=== PATIENT | male | born 1955 | race Caucasian/White ===

== ENCOUNTER 2017-08-23 13:50 | Emergency (ER) | payer OTHER ==
--- NOTE | 2017-08-23 14:00 | UC ---
Skin Complaint HPI - HPI Summary HPI Summary: 62 y/o male presents to the urgent care c/o a tick in his left thigh he noticed about 1 hr ago. Tick still on his leg. He was painting his deck this morning. He also had a tick bite about a week ago. He went to see his PCP and he Rx 2 tabs of Doxycycline PO. He is concerned about Lyme disease. However he has not developed any bull's eye rash, or fever, or joint pain, or PRINGLE in the past week. Pt denies SOB, chest pain, abdominal pain. N/V/D. - History of Current Complaint Time Seen by Provider: 08/23/17 13:59 Stated Complaint: TICK BITE Hx Obtained From: Patient Onset/Duration: Sudden Onset, Lasting Hours - 1hr Skin Exposure Onset/Duration: Hours Ago - 1hrs ago Onset Severity: Mild Current Severity: Mild Pain Intensity: 1 Pain Scale Used: 0-10 Numeric Location: Discrete - left thigh Character: Redness Aggravating Factor(s): Touch Alleviating Factor(s): Nothing Associated Signs & Symptoms: Positive: Rash Related History: Possible Reaction to: Insect - Allergy/Home Medications Allergies/Adverse Reactions: Allergies Allergy/AdvReac Type Severity Reaction Status Date / Time No Known Allergies Allergy Verified 08/23/17 14:01 Home Medications: Home Medications Hydrocortisone 2.5% CREAM(NF) 1 applic NH DAILY PRN 08/23/17 [History Confirmed 08/23/17] Review of Systems Constitutional: Negative Skin: Rash - left thich w/ alive tick and sorrounding redness Eyes: Negative ENT: Negative Respiratory: Negative Cardiovascular: Negative Gastrointestinal: Negative Genitourinary: Negative Motor: Negative Neurovascular: Negative Musculoskeletal: Negative Neurological: Negative Psychological: Negative Is Patient Immunocompromised?: No All Other Systems Reviewed And Are Negative: Yes PMH/Surg Hx/FS Hx/Imm Hx Previously Healthy: Yes Cardiovascular History: Hypertension - Surgical History Surgical History: None - Family History Known Family History: Positive: None - Pt denies PMHX - Social History Occupation: Employed Full-time Lives: With Family Physical Exam - Summary Physical Exam Summary: Vital Signs Reviewed: Yes General: well developed, well nourished male sitting in the examining table w/o any apparent distress. Eyes: Positive: Conjunctiva Clear - PERRLA, EOMI ENT: Positive: Normal ENT inspection, Hearing grossly normal, Pharynx normal, TMs normal Neck: Positive: Supple, Nontender, No Lymphadenopathy Respiratory: Positive: Chest nontender, Lungs clear, Normal breath sounds Cardiovascular: Positive: RRR, No Murmur, Pulses Normal Abdomen Description: Positive: Nontender, No Organomegaly, Soft. Negative: CVA Tenderness (R), CVA Tenderness (L) Bowel Sounds: Positive: Present Musculoskeletal: Positive: Strength Intact, ROM Intact, No Edema Neurological Exam: Normal Psychological Exam: Normal Skin: Positive: rashes - Proximal medial aspect of Left thigh with a tick with surrounding erythema, tick removed w/ twister technique, non tender to palpation. no swelling or drainage observed. Triage Information Reviewed: Yes Course/Dx - Course Course Of Treatment: 62 y/o male presents to the urgent care c/o a tick in his left thigh he noticed about 1 hr ago. Tick still on his leg. He was painting his deck this morning. He also had a tick bite about a week ago. He went to see his PCP and he Rx 2 tabs of Doxycycline PO. He is concerned about Lyme disease. However he has not developed any bull's eye rash, or fever, or joint pain, or PRINGLE in the past week. Pt denies SOB, chest pain, abdominal pain. N/V/ D.Hx obtained. Pt w/ vasyl tick on his left thigh on examination. Tick was removed from left thigh using twister technique. After tick removal and the skin cleansing. Antibiotic prophylaxis with Doxycycline PO given to the patient to prevent lyme Disease.. Pt tolerated well medication. Pt advised to observe the area for the development or Erythema Migrans for upto 30 days following exposure. Advised if he develops fever or erythema Migrans to return to the clinic or PCP for further treatment. Pt's BP is elevated today advised to decrease salt in diet, monitor BP and f/u with PCP for further management. D/C instructions explained. Pt understood and agreed with plan of care. - Differential Diagnoses - Skin Complaint Differential Diagnoses: Cellulitis, MRSA, Tick Born Illness, Urticaria, Other - insect bite, bee sting - Diagnoses Provider Diagnoses: 1- Left thigh tick bite. 2- Uncontrolled HTN Discharge - Sign-Out/Discharge Documenting (check all that apply): Discharge/Admit/Transfer - D/C home - Discharge Plan Condition: Stable Disposition: HOME Patient Education Materials: Tick Bite (ED), Low-Sodium Diet (ED) Referrals: Marjorie BLANC,Seamus Bonilla [Medical Doctor] - If Needed Vianey Sarkar NP [Primary Care Provider] - 2 Weeks Additional Instructions: 1- Please observe the area for the development or Erythema Migrans for upto 30 days following exposure. Components of the tick saliva can cause transient erythema that should not be confused with Erythema Migrans. If you develop the bull's eye rash, fever, joint pains please return to the urgent care or f/u with your PCP for further management. 2-Antibiotic prophylaxis with Doxycycline was given to you today to prevent Lyme Disease. Lyme serology can be drawn in 2 weeks with your PCP to r/o Lyme disease since there is probability of negative results at early exposure. 3-Your BP is elevated today. please decrease salt in your diet, monitor BP and if it continues to be elevated please f/u with your PCP for further management - Billing Disposition and Condition Condition: STABLE Disposition: HOME
[2017-08-23 14:01] VITALS: BP 147/98
[2017-08-23] MEDS ORDERED: DOXYcycline CAP(*) 100 MG PO ONE (14:14)
== END 2017-08-23 14:30 | disposition home or self-care (01) ==
LOC: UCEAST 13:50
DX: S70.362A Insect bite (nonvenomous), left thigh, initial encounter (principal); W57.XXXA Bitten or stung by nonvenomous insect and other nonvenomous arthropods, initial encounter; Y93.89 Activity, other specified; Y92.008 Other place in unspecified non-institutional (private) residence as the place of occurrence of the external cause; I10 Essential (primary) hypertension
CPT/HCPCS: 99212; A9270-GY; G0463